=== PATIENT | female | born 1990 | race Caucasian/White ===

== ENCOUNTER 2019-08-21 06:43 | Inpatient (IN) | payer OTHER, SELFPAY ==
[2019-07-28 13:36] VITALS: BMI 28.0
[2019-08-21] VITALS (70 sets, daily range): BP systolic 82–258; BP diastolic 49–187; PULSE 30–221; RESP 17; TEMP 35.7–37.9; O2SAT 84–100
[2019-08-21 07:27] LABS: Basophils Absolute Auto 0.1 K/mm3 (0.0-0.1); Basophils Percent Auto 0.5 % (0.2-1.2); Eosinophils Percent Auto 0.3 % (0-4.4); Hematocrit 34.1 % (37.0-47.0); Hemoglobin 11.4 g/dL (12.0-15.0); Immature Granulocyte Absolute 0.13 K/mm3 (0.00-0.031); Immature Granulocyte Percent A 1.2 % (0-0.5); Lymphocytes Absolute Auto 3.14 K/mm3 (0.9-3.2); Mean Corpuscular HGB Conc 33.4 g/dl (32-36); Mean Corpuscular Hemoglobin 30.3 pg (26-34); Mean Corpuscular Volume 90.7 fl (80-100); Mean Platelet Volume 10.6 fl (7.4-10.4); Monocytes Absolute Auto 0.8 K/mm3 (0.1-0.6); Monocytes Percent Auto 7.8 % (2.6-8.5); Neutrophils Absolute Auto 6.3 K/mm3 (1.3-6.7); Neutrophils Percent Auto 60.2 % (45.5-73.1); Platelet Count Result 193 k/mm3 (150-375); Red Blood Count 3.76 M/mm3 (4.2-5.4); Red Cell Distribution Width 13.4 % (11.5-14.5); White Blood Count 10.5 K/mm3 (4.5-10.0)
--- NOTE | 2019-08-21 07:28 | LDADM ---
This patient, Annika Antunez, was admitted to Labor/Delivery/Recovery 109 on 08/21/19 at 06:43. Plans for labor, pain management and were discussed with patient. Patient/family oriented to hospital policies and general routines including ID bracelet, bed and alarms, visiting hours, pain management, procedures, bathroom and other care routines, personal items, smoking policy, room service/diet and guest tray routines, infant security routines, and visiting hours. Patient/Family are encouraged to report perceived risks to care and to ask questions if they do not understand what they are told or what they should do. See OBIX for further documentation.
[2019-08-21] MEDS: LACTATED RINGERS 1,000 ML 125 ML IV CONT ×2 (07:39→15:10)
[2019-08-21] MEDS: OXYTOCIN 30 UNITS/NS 500 ML 30 UNITS/500 ML BAG IV CONT (07:40)
--- NOTE | 2019-08-21 08:25 | WPDOBADMIT ---
Obstetrics - Admit Note Admission Note: record reviewed. Additions to the history and/or subsequent changes in the physical findings follow. 29 y/o at 39 w/7 weeks here for induction of labor. GBS neg. AVSS NST reactive TOCO: Contractions irregularly ABD soft, nontender, gravid, vertex EXT nontender Cervix 2-3/50/-2. AROM with clear fluid. Vertex. A: IUP at term, desiring induction of labor. P: Oxytocin. Anticipate .
--- NOTE | 2019-08-21 12:49 | PM.OBPNLAB ---
Pain Control Date/time seen: 08/21/19 12:49 Comments: Pain OK. AVSS NST reactive TOCO: contractions every 2-4 min Cervix /-2. IUPC placed. Assessment and Plan Comments: Continue labor.
--- NOTE | 2019-08-21 15:51 | WPDANESEPPF ---
Anes - Initial Pre Proc Eval Date/Time: 08/21/19 15:51 Surgeon: Erwin Bai MD Pre Op Diagnosis: Induction of Labor Patient Data Age: 29 Gender: F Height: 5 ft 3 in Weight: 72 kg Last Vital Signs Temp 35.7 C L 08/21/19 15:00 Pulse 89 08/21/19 15:49 BP 113/65 08/21/19 15:49 Pulse Ox 100 08/21/19 15:49 Allergies Allergy/AdvReac Type Severity Reaction Status Date / Time No Known Allergies Allergy Unverified 03/03/18 08:42 Home Medications Medication Instructions Recorded Confirmed Type [id number] fumarate-FA 1 tablet PO DAILY 08/21/19 08/21/19 History [] Laboratory Tests 08/21/19 08/21/19 08/21/19 07:10 07:10 07:10 WBC 10.5 K/mm3 H K/mm3 (4.5-10.0) RBC 3.76 M/mm3 L M/mm3 (4.2-5.4) Hgb 11.4 g/dL L g/dL (12.0-15.0) Hct 34.1 % L % (37.0-47.0) MCV 90.7 fl fl (80-100) MCH 30.3 pg pg (26-34) MCHC 33.4 g/dl g/dl (32-36) RDW 13.4 % % (11.5-14.5) Plt Count 193 k/mm3 k/mm3 (150-375) MPV 10.6 fl H fl (7.4-10.4) Immature Gran % (Auto) 1.2 % H % (0-0.5) Neut % (Auto) 60.2 % % (45.5-73.1) Lymph % (Auto) 30.0 % % (18.3-44.2) [place] % (Auto) 7.8 % % (2.6-8.5) Eos % (Auto) 0.3 % % (0-4.4) Baso % (Auto) 0.5 % % (0.2-1.2) Lymph # (Auto) 3.14 K/mm3 K/mm3 (0.9-3.2) [place] # (Auto) 0.8 K/mm3 H K/mm3 (0.1-0.6) Eos # (Auto) 0.0 K/mm3 K/mm3 (0-0.3) Baso # (Auto) 0.1 K/mm3 K/mm3 (0.0-0.1) Abs Immat Gran (auto) 0.13 K/mm3 H K/mm3 (0.00-0.031) Absolute Neuts (auto) 6.3 K/mm3 K/mm3 (1.3-6.7) Absolute Nucleated RBC 0.0 K/mm3 K/mm3 (0.0-0.012) Nucleated RBC % 0.0 % % (0.0-0.2) RPR Pending Blood Type O Positive Antibody Screen Negative Patient hx anesthesia problems: none Family hx anesthesia problems: none PMFSH Family History Family History Grandparent Family history of thyroid disease Malignant neoplasm of prostate Sibling Family history of thyroid disease Mother Diabetes mellitus Social History Social History Smoking status: Never smoker Alcohol intake: current Substance use: never Substance use type: does not use Living arrangements: with family Occupation/Education: other Gender identity (if verbalized by the patient): Female Spiritual care concerns: No Agree to blood products: Yes Anes - Eval Final PreProcedure Day of Procedure 08/21/19 15:51 Patient weight: overweight Heart: regular rate and rhythm Lungs: clear to auscultation Neurological: alert and oriented ASA classification: II Emergent: no Anesthetic plan: proceed Anesthesia type and monitoring: regional epidural and standard monitoring Informed Consent: The patient's anesthetic plan and its attendant risks and benefits were discussed with the patient/family/POA. Questions were solicited and answers provided to the satisfaction of the patient/family/POA.
[2019-08-21] MEDS: OXYTOCIN 30 UNITS/NS 500 ML 30 UNITS/500 ML BAG 125 UNITS IV CONT (16:41)
--- NOTE | 2019-08-21 18:47 | PM.OBPRVD ---
OB - Delivery Note Procedure Delivery date: 08/21/19 Procedure: Induction of labor with Induction method: AROM Delivery monitor: external FHT, external uterine and internal uterine Route of delivery: Delivery repair: vicryl (3-0 Vicryl) Specimen: Yes (cord blood) Estimated blood loss (mL): 90 Anesthesia type: Epidural Disposition: PACU Complications: None Narrative: 29 y/o at 39 2/7 weeks gestation who presented to the hospital for induction of labor. Oxytocin was administered intravenously. Amniotomy was performed with return of clear fluid. She received an epidural for pain control. Her labor progressed and her cervix dilated completely. She pushed with good effort and delivered the 's head to the perineum from BABAK position, followed by the body. The nose and mouth were bulb suctioned. After a delay, the cord was clamped and cut. The infant was handed off the field. Cord blood was collected. The placenta delivered spontaneously and was grossly normal in appearance. The usual 3 vessel cord was noted. A superficial laceration to the distal vagina was sustained. This was reapproximated using a single figure of eight suture of 3-0 Vicryl. Excellent hemostasis resulted as did excellent reapproximation of the normal anatomy. Needle and instrument counts were correct. The patient was taken to recovery room in stable condition. The infant went to the nursery in stable condition. I was present and scrubbed for the entire delivery. Baby Date of : 08/21/19 Time of : 16:12 Weeks of gestation at delivery: 39 Infant gender: Male Weight (pounds): 7 Weight (ounces): 2 presentation: vertex Placenta delivery description: Spontaneous and Normal Configuration cord vessel description: 3 Vessels score one minute: 8 score five minutes: 9
--- NOTE | 2019-08-21 18:50 | PM.OBDSVD ---
DS: Diagnosis Discharge Diagnosis (1) (normal spontaneous vaginal delivery): Code(s): O80 - Encounter for full-term uncomplicated delivery Status: Acute OB - DS: Summary OB Procedures : None OB Procedures Intrapartum: Spontaneous Vag Delivery OB Procedures: : None Time Spent with Patient Time attestation: Total time spent providing and/or coordinating discharge services: DS: Data Data Completed and Pending Labs on day of discharge: Labs from last 24 hours 08/21/19 08/21/19 08/21/19 07:10 07:10 07:10 WBC 10.5 H RBC 3.76 L Hgb 11.4 L Hct 34.1 L MCV 90.7 MCH 30.3 MCHC 33.4 RDW 13.4 Plt Count 193 MPV 10.6 H Immature Gran % (Auto) 1.2 H Neut % (Auto) 60.2 Lymph % (Auto) 30.0 [place] % (Auto) 7.8 Eos % (Auto) 0.3 Baso % (Auto) 0.5 Lymph # (Auto) 3.14 [place] # (Auto) 0.8 H Eos # (Auto) 0.0 Baso # (Auto) 0.1 Abs Immat Gran (auto) 0.13 H Absolute Neuts (auto) 6.3 Absolute Nucleated RBC 0.0 Nucleated RBC % 0.0 RPR Pending Blood Type O Positive Antibody Screen Negative Discharge Plan Discharge Attending physician on discharge: Erwin Bai Discharging Clinician: Erwin Bai Patient Disposition: Home, Self-Care Activity: pelvic rest Diet: regular Discharge Instructions: Call or return if temperature above 100.4? F, increased abdominal pain, increased vaginal bleeding or any new problems. Stand Alone Forms: General Discharge Information Follow-up/Referrals: Erwin Bai MD [Physician] - (6 weeks) Discharge Medications: New ibuprofen 600 mg tablet 600 mg PO Q6H PRN (Reason: cramps) Qty: 30 RF: 0 Jkv-X-Yptdty Cream 1 applic topical PRN PRN (Reason: Sore Nipples) Qty: 1 RF: 0 acetaminophen [Mapap (acetaminophen)] 325 mg Tablet 650 mg PO Q6H PRN (Reason: Mild Pain (1-3) Or Headache) Qty: 30 RF: 0 Dermoplast (with menthol) 20-0.5 % Aerosol 1 spray topical PRN PRN (Reason: Perineal Discomfort) Qty: 1 RF: 0 Continued 28-800 mg-mcg Tablet 1 tablet PO DAILY RF: 0 Date of admission: 08/21/19 06:43 Primary Care Provider: UNKNOWN,DOCTOR Admitting Provider: Erwin Bai Attending physician on admission: Erwin Bai
[2019-08-21] MEDS: BENZOCAINE 20% AER SPR (*SP) 56 GM CAN 1 SPRAY TOPICAL (19:11)
[2019-08-21] MEDS: IBUPROFEN 600 MG TABLET PO (19:11)
[2019-08-21] MEDS: WITCH HAZEL 40 PADS 1 PAD TOPICAL (19:11)
--- NOTE | 2019-08-21 19:26 | OBPPTRN ---
Patient transferred to post room #291 via wheelchair with in crib. Support person present. Oriented to unit, room, information board, rooming in, admission packet and security measures. Patient verbalizes understanding.
[2019-08-22] MEDS: IBUPROFEN 600 MG TABLET PO ×2 (05:11→17:47)
[2019-08-22 05:41] LABS: Hematocrit 33.4 % (37.0-47.0); Hemoglobin 10.8 g/dL (12.0-15.0)
--- NOTE | 2019-08-22 07:19 | PM.OBDSVD ---
OB - DS: Summary OB Procedures : None OB Procedures Intrapartum: Spontaneous Vag Delivery OB Procedures: : None Status at Discharge Functional status at discharge: independent ambulation Overall status at discharge: patient is back to baseline Time Spent with Patient Time attestation: Total time spent providing and/or coordinating discharge services: Time spent: Less than 30 minutes Exam Const: General: comfortable and no acute distress Resp: Effort & Inspection: normal respiratory effort Auscultation: clear to auscultation bilaterally Cardio: Rate: regular rate GI: GI Palp: Yes Soft to palpation Auscultation: normal bowel sounds Other: Fundus firm below umbilicus Psych: Appearance: grossly normal Mental Status: mental status grossly normal Affect: normal affect DS: Data Data Completed and Pending Labs on day of discharge: Labs from last 24 hours 08/22/19 08/21/19 08/21/19 05:07 07:10 07:10 WBC RBC Hgb 10.8 L Hct 33.4 L MCV MCH MCHC RDW Plt Count MPV Immature Gran % (Auto) Neut % (Auto) Lymph % (Auto) [place] % (Auto) Eos % (Auto) Baso % (Auto) Lymph # (Auto) [place] # (Auto) Eos # (Auto) Baso # (Auto) Abs Immat Gran (auto) Absolute Neuts (auto) Absolute Nucleated RBC Nucleated RBC % RPR Pending Blood Type O Positive Antibody Screen Negative 08/21/19 07:10 WBC 10.5 H RBC 3.76 L Hgb 11.4 L Hct 34.1 L MCV 90.7 MCH 30.3 MCHC 33.4 RDW 13.4 Plt Count 193 MPV 10.6 H Immature Gran % (Auto) 1.2 H Neut % (Auto) 60.2 Lymph % (Auto) 30.0 [place] % (Auto) 7.8 Eos % (Auto) 0.3 Baso % (Auto) 0.5 Lymph # (Auto) 3.14 [place] # (Auto) 0.8 H Eos # (Auto) 0.0 Baso # (Auto) 0.1 Abs Immat Gran (auto) 0.13 H Absolute Neuts (auto) 6.3 Absolute Nucleated RBC 0.0 Nucleated RBC % 0.0 RPR Blood Type Antibody Screen Discharge Plan Discharge Attending physician on discharge: Erwin Bai Discharging Clinician: Erwin Bai Patient Disposition: Home, Self-Care Activity: pelvic rest Diet: regular Discharge Instructions: Call or return if temperature above 100.4? F, increased abdominal pain, increased vaginal bleeding or any new problems. Stand Alone Forms: General Discharge Information Follow-up/Referrals: Erwin Bai MD [Physician] - (6 weeks) Discharge Medications: New ibuprofen 600 mg tablet 600 mg PO Q6H PRN (Reason: cramps) Qty: 30 RF: 0 Uwn-D-Mzlmka Cream 1 applic topical PRN PRN (Reason: Sore Nipples) Qty: 1 RF: 0 acetaminophen [Mapap (acetaminophen)] 325 mg Tablet 650 mg PO Q6H PRN (Reason: Mild Pain (1-3) Or Headache) Qty: 30 RF: 0 Dermoplast (with menthol) 20-0.5 % Aerosol 1 spray topical PRN PRN (Reason: Perineal Discomfort) Qty: 1 RF: 0 Continued 28-800 mg-mcg Tablet 1 tablet PO DAILY RF: 0 Date of admission: 08/21/19 06:43 Primary Care Provider: UNKNOWN,DOCTOR Admitting Provider: Erwin Bai Attending physician on admission: Erwin Bai
--- NOTE | 2019-08-22 08:06 | WPDANLDPN2 ---
Anes-Prog Note L&D Date/Time: 08/22/19 08:06 Comfortable throughout: labor and delivery Neuraxial method: epidural Epidural/Spinal procedure site: clean & non-tender Neuro status: Neuro function grossly intact. Cardiovascular status: normal Respiratory status: normal Airway patency: baseline Mental status: baseline Post-Op hydration status: normal Vital Signs: Last Vital Signs Temp 37.9 C H 08/21/19 19:39 Pulse 71 08/21/19 19:39 Resp 17 08/21/19 19:39 BP 102/63 08/21/19 19:39 Pulse Ox 89 L 08/21/19 16:09 I/O: Intake & Output 08/21/19 08/22/19 08/22/19 23:59 07:59 15:59 Intake Total 1500 Output Total 75 Balance 1425 Post-procedural complaints: none Patient feedback: Patient satisfied with anesthetic care.
[2019-08-22 08:25] VITALS: BP 95/60; PULSE 59; RESP 16; TEMP 36.6; O2SAT 99
[2019-08-22] MEDS: DOCUSATE SODIUM 100 MG CAPSULE PO ×2 (10:35→17:47)
[2019-08-22] MEDS: MULTIVIT/MIN/PREN/FOL AC/IRON TABLET 1 TAB PO (10:35)
[2019-08-22 11:26] LABS: Rapid Plasma Reagin Non-Reactive (NonReactive)
--- NOTE | 2019-08-22 11:30 | PC.NURSE ---
Consulted with patient, mother reports pain with feeding. Both nipples are reddened from incorrect latch. Nipple care reviewed. Observed mother putting to breast in shallow latch with incorrect alignment. Reviewed infant feeding cues, frequencies, duration of feedings, feeding elimination flow sheet, and signs of adequate intake. Demonstrated stimulation techniques to wake for feeding. Assisted with to breast. Reviewed positioning/alignment in cross cradle, holding breast in U hold and guided asymmetrical latch on. Discussed rational for each. was able to latch correctly. Mother quickly reports she can feel infant is latched more deeply than previous feedings. Infant nursed eagerly, with steady draws and frequent swallowing noted. Reviewed signs of a correct latch, effective nursing and suck swallow ratio. was able to maintain latch without discomfort to mother. Suggested mother stimulate to keep awake and nursing effectively for increased intake and assist with maintaining deep latch. Demonstrated how to adjust latch more deeply while feeding. Instructed mother to call out for RN assistance if she is unable to latch for feeding or she has discomfort with nursing. Instructed feeding should be initiated three hours from start of last feeding or if feeding cues are noted before. Mother voiced understanding of information shared.
--- NOTE | 2019-08-22 14:18 | PC.NURSE ---
Mother will discharge after 24 hours. Mother is feeding as required and waking to feed if needed. has had several effective feedings in the past 24 hours, and is currently meeting outcomes for weight, output, jaundice and feeding frequencies. Mother states she feels confident to continue effective at home. Reviewed transition to breast milk, signs of adequate intake, and engorgement/relief. Instructed to call ICP if intake/output less than required. Reviewed regular medications mother is taking. Information provided per Devorah. Reviewed community resources on the [facility] website and in the Mom/Baby guide. Information on outpatient services provided. Mother has no further questions at this time.
[2019-08-24 11:34] VITALS: BP 98/55; PULSE 57; RESP 18; TEMP 36.9
== END 2019-08-22 19:45 | disposition home or self-care (01) | DRG 807 ==
LOC: ANHLDR 18:50 → ANHOB2 08-22 14:42 → ANHLDR 08-23 13:01 → ANHOB2 08-23 13:01
PROVIDERS: Admitting Provider Obstetrics & Gynecology; Visit Provider Student in an Organized Health Care Education/Training Program
DX: O71.4 Obstetric high vaginal laceration alone (principal); Z37.0 Single live birth; Z3A.39 39 weeks gestation of pregnancy; Z23 Encounter for immunization
CPT/HCPCS: 36415; 85014; 85018; 85025; 86592; 86850; 86900; 86901; A9270; J2590; J2795; J3010; J7120

== ENCOUNTER 2020-08-27 14:30 | Outpatient (CLI) | payer OTHER, SELFPAY | END 2020-08-27 14:31 | disposition home or self-care (01) | LOC: ANHCOVIDVC 14:30 | DX: Z23 Encounter for immunization (principal) | CPT/HCPCS: 0001A; 91300 ==

== ENCOUNTER 2020-09-17 14:33 | Outpatient (CLI) | payer OTHER, SELFPAY | END 2020-09-17 14:34 | disposition home or self-care (01) | LOC: ANHCOVIDVC 14:33 | DX: Z23 Encounter for immunization (principal) | CPT/HCPCS: 0002A; 91300 ==